=== PATIENT | male | born 1980 | race Two or more races ===

== ENCOUNTER 2016-11-01 12:34 | Emergency (ER) | payer OTHER ==
[~2016-11-01] VITALS: Ht 170.2 cm; Wt 85.0 kg
[~2016-11-01 12:34] MED LIST: LEVO25TA2 PO; LEVO50TA PO; PANT40GR PO
[2016-11-01] MEDS ORDERED: SODIUM CHLORIDE FLUSH 10ML SYR IVF ONE (13:00)
[2016-11-01] MEDS ORDERED: DIPH,PERTUSS(ACELL),TET VAC/PF 0.5 ML IM-VACC ONE ×2 (13:00→13:41)
[2016-11-01] MEDS ORDERED: LIDOCAINE 1%-EPI 1:100K, 20ML SQ ONE (13:00)
[2016-11-01] MEDS ORDERED: SODIUM CHLORIDE 0.9% 1,000ML IVBOLUS ONE (13:00)
[2016-11-01 13:35] LABS: BLOOD UREA NITROGEN 13 mg/dL (7-18)
[2016-11-01] MEDS ORDERED: LIDOCAINE 1%, 20ML ONE (13:41)
[2016-11-01 14:06] VITALS: BP 109/68
[2016-11-01] MEDS ORDERED: BACITRACIN ZINC OINT 500U/GM, 0.9 GM ONE (14:28)
== END 2016-11-01 14:38 | disposition home or self-care (01) ==
LOC: ED 13:13
DX: R55 Syncope and collapse (principal); S01.81XA Laceration without foreign body of other part of head, initial encounter; E03.9 Hypothyroidism, unspecified; X58.XXXA Exposure to other specified factors, initial encounter; Y93.89 Activity, other specified; Y99.8 Other external cause status; Y92.89 Other specified places as the place of occurrence of the external cause
CPT/HCPCS: 12013; 36415; 71010; 80048; 82040; 85025; 90471; 90715; 93005; 99285; J3490; J7030

== ENCOUNTER 2017-08-05 18:21 | Emergency (ER) | payer OTHER ==
[~2017-08-05] VITALS: Ht 170.2 cm; Wt 88.6 kg
[2017-08-05 18:25] VITALS: BP 116/82
== END 2017-08-05 20:32 | disposition home or self-care (01) ==
LOC: ED 20:26
DX: M79.661 Pain in right lower leg (principal); M79.662 Pain in left lower leg; E03.9 Hypothyroidism, unspecified
CPT/HCPCS: 93970; 99284

== ENCOUNTER 2018-01-14 19:32 | Emergency (ER) | payer OTHER ==
[~2018-01-14] VITALS: Ht 170.2 cm; Wt 85.3 kg
[2018-01-14 19:33] VITALS: BP 122/83
== END 2018-01-14 19:45 | disposition left against medical advice (07) ==
LOC: ED 19:38
DX: R51 Headache (principal); R11.0 Nausea
CPT/HCPCS: 99281